=== PATIENT | male | born 2000 | race Caucasian/White ===

== ENCOUNTER 2022-10-19 19:33 | Emergency (ER) | payer OTHER ==
[~2022-10-19] VITALS: Ht 182.9 cm; Wt 98.4 kg
[~2022-10-19 19:33] MED LIST: CODACEE120 PO; ONDA4ODT MM; PENVK250SU PO; PRED20 PO; PROM25 PO
[2022-10-19 19:55] VITALS: BP 116/64
== END 2022-10-19 21:10 | disposition home or self-care (01) ==
LOC: ER 19:33
DX: S93.402A Sprain of unspecified ligament of left ankle, initial encounter (principal); X50.1XXA Overexertion from prolonged static or awkward postures, initial encounter
CPT/HCPCS: 73610